=== PATIENT | female | born 1930 | race Caucasian/White ===

== ENCOUNTER 2018-03-12 17:44 | Emergency (ER) | payer MEDICARE, OTHER ==
[~2018-03-12] VITALS: Ht 162.6 cm; Wt 68.0 kg
[2018-03-12] MEDS ORDERED: ASPIRIN 81 MG CHEW TAB PO ONE (18:00)
[2018-03-12 18:22] LABS: BASOPHILS # (AUTO) 0.1 (0.0-0.1); BASOPHILS % 0.9 % (0.0-1.0); EOSINOPHILS # (AUTO) 0.2 (0.0-0.4); EOSINOPHILS % 2.2 % (0.0-6.0); HEMATOCRIT 38.8 % (34.2-44.1); HEMOGLOBIN 12.4 g/dL (12.0-16.0); LYMPHOCYTES # (AUTO) 3.4 (1.0-3.2); LYMPHOCYTES % 32.5 % (18.0-39.1); MEAN CORPUSCULAR HEMOGLOBIN 27.1 pg (28-32); MEAN CORPUSCULAR VOLUME 84.7 fL (81-99); MONOCYTES # (AUTO) 0.8 (0.2-0.8); MONOCYTES % 7.6 % (4.4-11.3); NEUTROPHILS # (AUTO) 5.9 (2.1-6.9); NEUTROPHILS % 56.3 % (38.7-80.0); PLATELET COUNT 298 x10e3/uL (140-360); RED BLOOD COUNT 4.58 x10e6/uL (3.6-5.1)
[2018-03-12 18:28] LABS: CLARITY,URINE TURBID (CLEAR); COLOR,URINE YELLOW (YELLOW); KETONES,URINE TRACE (NEGATIVE); LEUKOCYTE ESTERASE ,URINE 2+ (NEGATIVE); NITRITE,URINE NEGATIVE (NEGATIVE); PROTEIN,URINE DIPSTICK 2+ (NEGATIVE)
[2018-03-12 18:29] LABS: BILIRUBIN,URINE 1+ (NEGATIVE); URINE UROBILINOGEN 0.2 mg/dL (0.2 - 1)
[2018-03-12 18:31] LABS: INR 1.02; PROTHROMBIN TIME 12.6 seconds (11.9-14.5)
[2018-03-12 18:32] LABS: PARTIAL THROMBOPLASTIN TIME 26.4 seconds (23.8-35.5)
[2018-03-12 18:43] LABS: ALBUMIN 2.4 g/dL (3.5-5.0); ALBUMIN/GLOBULIN RATIO 0.5 (0.8-2.0); ANION GAP 15.7 mmol/L (8-16); CALCIUM 9.9 mg/dL (8.4-10.2); CREATININE, SERUM 0.9 mg/dL (0.57-1.11); POTASSIUM 3.7 mmol/L (3.5-5.1)
[2018-03-12 18:46] LABS: AMORPHOUS SEDIMENT,URINE MODERATE (FEW); BACTERIA,URINE MANY /HPF; WBC,URINE (MAN) 21-50 /HPF (0-5)
[2018-03-12 18:51] LABS: CREATINE KINASE MB 1.9 ng/mL (0-5.0)
--- NOTE | 2018-03-12 19:14 | Diagnostic Imaging Report ---
History: Fall, pain Comparison studies:None Technique: Axial images were obtained from the brain and cervical spine. Coronal and sagittal images reconstructed from the axial data. Intravenous contrast: None Findings: Head CT: Scalp/skull: An acute midline frontal scalp hematoma is not associated with subcutaneous emphysema or with hyperdense foreign bodies. No underlying fractures. Brain sulci: Moderately prominent. Ventricles: Moderate compensatory dilatation. No hydrocephalus. Extra-axial spaces: No masses. No fluid collections. 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 Moderate microvascular ischemic changes. No masses, hemorrhage, acute or chronic cortical vascular insults. Sellar/suprasellar region: No abnormalities. Craniocervical junction: Patent foramen magnum. No Chiari one malformation. Cervical spine CT: Airway: Patent. Fractures: None. Soft tissues: No gross abnormalities. Atlantoaxial articulation: Intact. Alignment: Mildly exaggerated lordosis. Cervicomedullary junction: No abnormalities. Patent foramen magnum. Vertebrae: No infection or neoplasm. Degenerative changes: Multilevel spondylosis and degenerative disc disease without significant canal stenosis. Incidental findings: Left thyroid nodule measuring 2.6 cm. Right anterior neck 1.6 cm homogeneous round homogeneous round cutaneous/subcutaneous lesion which warrants direct inspection but is likely a benign dermal cyst (series 6- image 51). IMPRESSION: Head CT: No acute abnormalities. Chronic findings: Moderate generalized volume loss. Moderate supratentorial white matter ischemic changes. 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 No acute abnormalities. 2. Right anterior neck 1.6 cm homogeneous round homogeneous round cutaneous/subcutaneous lesion which warrants direct inspection but is likely a benign dermal cyst (series 6- image 51). 3. Left thyroid nodule measuring 2.6 cm which meets ACR criteria to be evaluated by nonemergent thyroid US. Preliminary report provided by Dr. Wagner on 03/12/2018 at 1900 hours. Signed by: Dr. Black Girard M.D. on 03/12/2018 7:11 PM
--- NOTE | 2018-03-12 19:14 | Diagnostic Imaging Report ---
History: Fall, pain Comparison studies:None Technique: Axial images were obtained from the brain and cervical spine. Coronal and sagittal images reconstructed from the axial data. Intravenous contrast: None Findings: Head CT: Scalp/skull: An acute midline frontal scalp hematoma is not associated with subcutaneous emphysema or with hyperdense foreign bodies. No underlying fractures. Brain sulci: Moderately prominent. Ventricles: Moderate compensatory dilatation. No hydrocephalus. Extra-axial spaces: No masses. No fluid collections. Parenchyma: Chronic right SCORER SINGLE infarct. Moderate microvascular ischemic changes. No masses, hemorrhage, acute or chronic cortical vascular insults. Sellar/suprasellar region: No abnormalities. Craniocervical junction: Patent foramen magnum. No Chiari one malformation. Cervical spine CT: Airway: Patent. Fractures: None. Soft tissues: No gross abnormalities. Atlantoaxial articulation: Intact. Alignment: Mildly exaggerated lordosis. Cervicomedullary junction: No abnormalities. Patent foramen magnum. Vertebrae: No infection or neoplasm. Degenerative changes: Multilevel spondylosis and degenerative disc disease without significant canal stenosis. Incidental findings: Left thyroid nodule measuring 2.6 cm. Right anterior neck 1.6 cm homogeneous round homogeneous round cutaneous/subcutaneous lesion which warrants direct inspection but is likely a benign dermal cyst (series 6- image 51). IMPRESSION: Head CT: No acute abnormalities. Chronic findings: Moderate generalized volume loss. Moderate supratentorial white matter ischemic changes. Subtle slight cortical infiltrate in the right medial occipital lobe (SCORER SINGLE) Cervical spine CT: 1. No acute abnormalities. 2. Right anterior neck 1.6 cm homogeneous round homogeneous round cutaneous/subcutaneous lesion which warrants direct inspection but is likely a benign dermal cyst (series 6- image 51). 3. Left thyroid nodule measuring 2.6 cm which meets ACR criteria to be evaluated by nonemergent thyroid US. Preliminary report provided by Dr. Wagner on 03/12/2018 at 1900 hours. Signed by: Dr. Black Girard M.D. on 03/12/2018 7:11 PM
[2018-03-12] MEDS ORDERED: CYMBALTA30 MG PO (19:30)
[2018-03-12] MEDS ORDERED: PROMETHAZINE HC25 M1 PO (19:30)
[2018-03-12] MEDS ORDERED: TYLENOL WITH C1 EACH PO (19:30)
[2018-03-12] MEDS ORDERED: MULTI-VITAMIN1 EACH PO (19:30)
[2018-03-12] MEDS ORDERED: DILAUDID2 MG PO (19:30)
[2018-03-12] MEDS ORDERED: TIMOPTIC 0.25%1 EACH (19:30)
[2018-03-12] MEDS ORDERED: BISACODYL5 MG PO (19:30)
[2018-03-12] MEDS ORDERED: ACETAMINOPHEN650 MG RC (19:30)
[2018-03-12] MEDS ORDERED: LEVSIN0.125 MG PO (19:30)
[2018-03-12] MEDS ORDERED: KEPPRA500 MG PO (19:30)
[2018-03-12] MEDS ORDERED: NORCO 5-325 TA1 EACH PO (19:30)
[2018-03-12] MEDS ORDERED: DUONEB INH (19:30)
[2018-03-12] MEDS ORDERED: LORAZEPAM0.5 MG PO (19:30)
[2018-03-12] MEDS ORDERED: AMLODIPINE BES2.5 MG PO (19:30)
[2018-03-12] MEDS ORDERED: DOCUSATE SODIU100 MG PO (19:30)
[2018-03-12] MEDS ORDERED: LIDOCAINE 1% W/EPINEPHRINE 20 ML VIAL INJ STA (19:37)
[2018-03-12] MEDS: LORAZEPAM INJ 2 MG/ML VIAL IV ONE ×2 (20:06→20:09)
[2018-03-12] MEDS ORDERED: LORAZEPAM INJ 2 MG/ML VIAL ONE (20:06)
[2018-03-12] MEDS ORDERED: CEFTRIAXONE SOD 1 GM VIAL IV STA (20:16)
[2018-03-12 20:46] VITALS: BP 136/70
== END 2018-03-12 20:58 | disposition home or self-care (01) ==
LOC: ER 17:44
DX: S01.81XA Laceration without foreign body of other part of head, initial encounter (principal); W06.XXXA Fall from bed, initial encounter; Y92.122 Bedroom in nursing home as the place of occurrence of the external cause; S00.03XA Contusion of scalp, initial encounter; R00.0 Tachycardia, unspecified; Z66 Do not resuscitate; Z51.5 Encounter for palliative care; G40.89 Other seizures; N30.91 Cystitis, unspecified with hematuria
CPT/HCPCS: 12011; 36415; 70450; 72125; 80053; 81001; 82550; 82553; 82948; 83690; 83880; 84484; 85025; 85610; 85730; 93005; 99285; J0696; J2060